=== PATIENT | male | born 1960 | race Caucasian/White ===

== ENCOUNTER 2019-03-09 15:36 | Emergency (ER) | payer MEDICARE ==
[2019-03-09] MEDS ORDERED: 0.9 % SODIUM CHLORIDE 1000ML 1,000 ML IV PRN ×2 (15:41→16:29)
--- NOTE | 2019-03-09 15:50 | Emergency Department Record ---
History of Present Illness - General Chief Complaint: Altered Mental Status Stated Complaint: STROKE LIKE SYMPTOMS Time Seen by Provider: 03/09/19 15:40 Source: Patient, EMS Mode of Arrival: EMS Limitations: Altered mental status, Other (CVA non verbal) - History of Present Illness Initial Comments: Pt arrived by EMS for right sided stroke symptoms and non verbal. Grandson present states he saw him sleeping in his chair at 2PM today which is typical. He did not wake him. At 2:45PM a friend stopped at the house and the patient walked to and opened the door then collapsed on the floor. EMS was called and found the pt with stoke symptoms of right side weakness and aphasic. There is no hx of stroke. Limited hx at this time. Review of Systems ROS unobtainable: Due to mental status, Other (non verbal stoke. ) Physical Exam - General General Appearance: Alert, Cooperative, Moderate distress Limitations: Altered mental status, Other (non verbal) - Head Head exam: Atraumatic - ENT ENT exam: Mucous membranes moist, Normal external ear exam, Normal orophraynx Nasal Exam: Normal inspection Mouth exam: Normal external inspection - Neck Neck exam: Normal inspection, Full ROM. negative: Tenderness - Respiratory Respiratory exam: Normal lung sounds bilaterally. negative: Respiratory distress, Rhonchi - Cardiovascular Cardiovascular Exam: Regular rate, Normal rhythm. negative: Tachycardia - GI/Abdominal GI/Abdominal exam: Soft, Normal bowel sounds. negative: Tenderness - Extremities Extremities exam: Normal inspection. negative: Pedal edema, Tenderness - Neurological Neurological exam: Alert (see stroke scale. Non verbal. ) - Skin Skin exam: Normal color. negative: Rash Stroke Assessment - NIH Stroke Scale 1a. Level of Consciousness: (0) Alert 1b. LOC Questions: (2) Answers No Questions Correctly 1c. LOC Commands: (0) Performs Tasks Correctly 2. Best Gaze: (0) Normal 3. Visual: (0) No Visual Loss 4. Facial Palsy: (2) Partial Paralysis 5a. Motor Arm Left: (0) No Drift 5b. Motor Arm Right: (4) No Movement 6a. Motor Leg Left: (0) No Drift 6b. Motor Leg Right: (2) Some Keene Effort 7. Limb Ataxia: (2) Present 2 Limbs 8. Sensory: (1) Mild/Moderate Sensory Loss 9. Best Language: (2) Severe Aphasia 10. Dysarthria: (1) Mild/Moderate Dysarthria 11. Extinction/Inattention: (1) Visual/Tactile Inattention NIH Stoke Scale Total: 17 NIH Stroke Scale Date: 03/09/19 NIH Stroke Scale Time: 15:54 Course - Reevaluation(s) Reevaluation #1: 03/09/19 15:54 Seen on arrival. Alert, non verbal, follow commands. Right sided weakness upper flaccid, lower some gravity effort. To CT emergent. Await results. Bing requesting transfer to [facility] in [place]. Reevaluation #2: 03/09/19 16:22 CT with large stoke in left MCA distribution, >50% distribution involved. Spoke with [facility] Once Call. Dr. Goldsmith Stroke team. "No TPA, fluids at 80 cc/hr". Spoke with Dr. Emery in ED aware and accepts. Bing at bedside and understands [facility] is best appropriate facility. Medical Decision Making - Management Options MDM Management: Additional Work-up Planned (e.g. ADM/Transfer/OP Study) - Data Complexity MDM Data: Labs Ordered and/or Reviewed, X-Ray Ordered and/or Reviewed, Discussion of Test Results With Performing Physician - Lab Data Result diagrams: 03/09/19 15:40 03/09/19 15:40 - Radiology Data Radiology results: Report reviewed, Image reviewed Critical Care Time Critical Care Time: Yes Total Critical Care Time: 30 Critical Care Time: bedside care and arranged transfer talks with Stroke team and ED at [facility]. Family meeting. Disposition Disposition: Transfer Clinical Impression: CVA (cerebral vascular accident) Disposition: Acute Care Hospital Transfer Transfer To: [facility] ED Reason For Transfer: Stroke Team Accepting Physician: Drs. Goldsmith and Rupert Time Discussed w/Accepting Physician: 16:25 Condition: (3) Guarded Forms: Patient Portal Access Time of Disposition: 16:25 Quality - Quality Measures Quality Measures: N/A - Blood Pressure Screening Does Patient Have Any of the Following: No Blood Pressure Classification: Pre-Hypertensive BP Reading Systolic Measurement: 127 Diastolic Measurement: 87 Screening for High Blood Pressure: < Pre-Hypertensive BP, F/U Documented > [G8950] Pre-Hypertensive Follow-up Interventions: Follow-up with rescreen every year.
[2019-03-09 15:52] LABS: BASO % 0.5 % (0-6); EOS % 3.6 % (0-6); GRAN % 63.6 % (47-80); HEMATOCRIT 41.4 % (42.0-52.0); HEMOGLOBIN 13.7 gm/dl (14.0-18.0); LYMPH % 29.5 % (16-45); MEAN CELL VOLUME 101.5 fl (81-97); MEAN CORPUSCULAR HGB CONC 33.1 g/dl (32-36); MEAN PLATELET VOLUME 9.3 fl (7.4-10.4); MONO % 2.8 % (0-9); PLATELET COUNT 343 K/uL (130-400); RED BLOOD COUNT 4.08 M/uL (4.40-5.70); RED CELL DISTRIBUTION WIDTH 12.7 % (11.5-14.5); WHITE BLOOD COUNT W/O DIFF 9.1 K/uL (4.2-12.2)
[2019-03-09 15:54] LABS: MEAN CORPUSCULAR HEMOGLOBIN 33.5 pg (27-33)
[2019-03-09 16:03] LABS: CREATININE 3.5 mg/dL (0.7-1.2)
[2019-03-09 16:05] LABS: PARTIAL THROMBOPLASTIN TIME 25.2 SECONDS (24.5-39.1)
[2019-03-09] MEDS ORDERED: LORAZEPAM 2 MG/ML VIAL IV ONE (16:29)
--- NOTE | 2019-03-10 11:01 | CT SCAN REPORT ---
EXAM: CT OF THE HEAD WITHOUT CONTRAST HISTORY: PATIENT FOUND APHASIC WITH RIGHT HEMIPARESIS. PATIENT UNABLE TO PROVIDE INFORMATION. TECHNIQUE: Standard CT imaging of the head without intravenous contrast was obtained. Comparison: 12/09/13. FINDINGS: Loss of the mcclellan whites with a large area of hypodensity in the left MCA distribution primarily involving the left frontal lobe and insular cortex and portions of the parietal and temporal lobe consistent with acute infarct. There is hyperdensity within the left MCA and the sylvian fissure suggestive of thrombus. There is sulcal defacement within this region without other significant mass effect. No midline shift. No intracranial hemorrhage is identified. The ventricles and basal cisterns are maintained. Moderate opacification of the ethmoid sinuses with minimal mucosal thickening in the maxillary sinuses. No layering fluid. The mastoid air cells are clear. No displaced calvarial fracture. IMPRESSION: LARGE ACUTE LEFT MCA INFARCT. CRITICAL RESULTS DISCUSSED WITH THE PATIENT'S EMERGENCY ROOM PROVIDER AT THE TIME OF DICTATION. JOB NUMBER: [id number] MTDD
--- NOTE | 2019-03-10 11:03 | RADIOLOGY REPORT ---
EXAM: CHEST, ONE VIEW HISTORY: STROKE. TECHNIQUE: One view of the chest was obtained. Comparison: None. FINDINGS: The cardiomediastinal silhouette is normal in size. The pulmonary vasculature is not overly congested. No focal consolidation, pleural effusion or pneumothorax is evident. IMPRESSION: NO EVIDENCE FOR PNEUMONIA OR PULMONARY EDEMA. JOB NUMBER: [id number] MTDD
== END 2019-03-09 16:37 | disposition short-term general hospital (02) ==
LOC: ER 15:36
DX: I62.9 Nontraumatic intracranial hemorrhage, unspecified (principal); R47.01 Aphasia; R47.1 Dysarthria and anarthria; R29.810 Facial weakness
CPT/HCPCS: 70450; 71045; 80048; 85025; 85610; 85730; 93041; 96374; 99285

== ENCOUNTER 2019-08-08 18:36 | Emergency (ER) | payer MEDICARE ==
--- NOTE | 2019-08-08 19:17 | Emergency Department Record ---
History of Present Illness - General Chief complaint: Pain Stated complaint: FEEDING TUBE SORE/PORT ALSO Time Seen by Provider: 08/08/19 18:37 Source: Patient Mode of Arrival: Wheelchair Limitations: No limitations - History of Present Illness Initial comments: 59 yo male s/p stroke earlier in the year presents to ED for evaluation of pain at this feeding tube site. Patient is non-verbal following CVA this year, significant other reports that the patient pointed at his feeding tube site indicated pain to the area. SO reports that his feeding tube has not been used for several months, and is scheduled to removed soon. SO was concerned about possible infection at the feeding tube site. MD Complaint: Abdominal Pain Onset/Timin -: Days(s) History of Same: Yes Quality: Aching Consistency: Constant Improves with: Nothing Worsens with: Nothing Associated Symptoms: Denies other symptoms - Related Data Allergies Allergy/AdvReac Type Severity Reaction Status Date / Time No Known Drug Allergies Allergy Verified 08/08/19 18:58 Travel Screening - Travel/Exposure Within Last 30 Days Have you traveled within the last 30 days?: No - Travel/Exposure Within Last Year Have you traveled outside the [place] in the last year?: No - Additonal Travel Details Have you been exposed to anyone with a communicable illness?: No - Travel Symptoms Symptom Screening: None Review of Systems Constitutional: Denies: Chills, Fever, Malaise, Night sweats Eyes: Denies: Eye discharge, Eye pain ENT: Denies: Congestion, Ear pain, Epistaxis Respiratory: Denies: Cough, Dyspnea Cardiovascular: Denies: Chest pain, Dyspnea on exertion Endocrine: Denies: Fatigue, Heat or cold intolerance Gastrointestinal: Reports: Abdominal pain. Denies: Nausea, Vomiting Genitourinary: Denies: Incontinence, Retention Musculoskeletal: Denies: Arthralgia, Back pain Skin: Denies: Bruising, Change in color Neurological: Denies: Abnormal gait, Confusion, Headache, Seizure Psychiatric: Denies: Anxiety Hematological/Lymphatic: Denies: Anemia, Blood Clots Past Medical History - SOCIAL HISTORY Smoking Status: Current every day smoker Alcohol Use: None Drug Use: None - RESPIRATORY Hx Respiratory Disorders: No - CARDIOVASCULAR Hx Cardio Disorders: No - NEURO Hx Neuro Disorders: Yes Hx CVA: Yes (2018 x4) Hx Dementia: Yes - GI Hx GI Disorders: Yes Hx Rectal Bleeding: Yes Hx of Polyps: Yes - Hx Genitourinary Disorders: Yes Hx Dialysis: Yes Hx Renal Disease: Yes - ENDOCRINE Hx Endocrine Disorders: No - MUSCULOSKELETAL Hx Musculoskeletal Disorders: Yes - PSYCH Hx Psych Problems: No - HEMATOLOGY/ONCOLOGY Hx Hematology/Oncology Disorders: No Family Medical History Any Significant Family History?: No Physical Exam - General General Appearance: Alert, Oriented x3, Cooperative, No acute distress Limitations: No limitations - Head Head exam: Atraumatic, Normocephalic, Normal inspection Head exam detail: negative: Abrasion, Contusion, Barron's sign, General tenderness, Hematoma, Laceration - Eye Eye exam: Normal appearance. negative: Conjunctival injection, Periorbital swelling, Periorbital tenderness, Scleral icterus - ENT Ear exam: negative: Auricular hematoma, Auricular trauma Nasal Exam: negative: Active bleeding, Discharge, Dried blood, Foreign body Mouth exam: negative: Drooling, Laceration, Muffled voice, Tongue elevation - Neck Neck exam: Normal inspection. negative: Meningismus, Tenderness - Respiratory Respiratory exam: Normal lung sounds bilaterally. negative: Rales, Respiratory distress, Rhonchi, Stridor - Cardiovascular Cardiovascular Exam: Regular rate, Normal rhythm, Normal heart sounds - GI/Abdominal GI/Abdominal exam: Soft, Other (No evidence for infection at the patient's feeding tube insertion site, abdomen is non-tender on examination.). negative: Rebound, Rigid, Tenderness - Rectal Rectal exam: Deferred - exam: Deferred - Extremities Extremities exam: Normal inspection. negative: Pedal edema, Tenderness - Back Back exam: Denies: CVA tenderness (R), CVA tenderness (L) - Neurological Neurological exam: Alert, Normal gait, Oriented X3 - Psychiatric Psychiatric exam: Normal affect, Normal mood - Skin Skin exam: Normal color. negative: Abrasion Type of lesion: negative: abrasion Course Vital Signs 08/08/19 18:43 Temperature 98.2 F Pulse Rate 93 H Respiratory 18 Rate Blood Pressure 121/81 Pulse Ox 98 - Reevaluation(s) Reevaluation #1: 08/08/19 19:31 Gastrograffin study was reviewed and feeding tube appears in appropriate position. No clinical signs of infection are present on examination. Patient appears stable for discharge at this time. Disposition Disposition: Discharge Clinical Impression: Post-op pain Disposition: Home, Self-Care Condition: (2) Stable Instructions: Pain Management After Surgery (GEN) Additional Instructions: Return to ED if your symptoms worsen or if you have any concerns. Call Dr. Arteaga's office Saturday morning for a follow-up appointment next week for possible early removal. Referrals: LAUREN ARTEAGA [DOCTOR OF OSTEOPATH] - Forms: Patient Portal Access Time of Disposition: 19:33 Quality - Quality Measures Quality Measures: N/A - Blood Pressure Screening Does Patient Have Any of the Following: No Blood Pressure Classification: Pre-Hypertensive BP Reading Systolic Measurement: 121 Diastolic Measurement: 81 Screening for High Blood Pressure: < Pre-Hypertensive BP, F/U Documented > [G8950] Pre-Hypertensive Follow-up Interventions: Referral to alternative/primary care provider.
--- NOTE | 2019-08-08 20:15 | RADIOLOGY REPORT ---
EXAMINATION: Abdomen Single View EXAM DATE: 08/08/2019 7:38 PM TECHNIQUE: Single view of the abdomen after contrast administration through the feeding tube INDICATION: feeding tube pain COMPARISON: CT of the abdomen and pelvis 09/08/2015 ENCOUNTER: Not applicable FINDINGS: Bowel: No extra luminal calcification demonstrated. Contrast and demonstrate within the feeding tube within the stomach. Nonobstructive bowel gas pattern. Prominent stool within the colon. Abnormal Calcifications: None. Bones: Unremarkable. Other Findings: Surgical clips in the midabdomen IMPRESSION: 1. No extraluminal contrast to suggest a feeding tube complication Dictated by: DARIN ALEJANDRO MD on 08/08/2019 8:08 PM. .
== END 2019-08-08 19:48 | disposition home or self-care (01) ==
LOC: ER 18:36
DX: G89.18 Other acute postprocedural pain (principal); R10.9 Unspecified abdominal pain; F17.210 Nicotine dependence, cigarettes, uncomplicated
CPT/HCPCS: 74018; 99283